=== PATIENT | female | born 1945 | race Caucasian/White ===

== ENCOUNTER → 2017-02-23 | Outpatient (CLI) | payer OTHER | END | disposition home or self-care (01) | LOC: C.RDSM 15:15 | PROVIDERS: ATTEND Physical Medicine & Rehabilitation Sports Medicine | DX: M25.562 Pain in left knee (principal) ==

== ENCOUNTER 2017-07-01 05:02 | Inpatient (IN) | payer OTHER ==
[2017-06-08 11:11] VITALS: Ht 157.5 cm; Wt 70.4 kg
--- NOTE | 2017-06-08 11:42 | PAT Medication Instructions ---
Service Date Jun 08, 2017. Current Home Medication List Acetaminophen (Tylenol), 500 MG PO PRN Aspirin (Aspirin), 325 MG PO QPM Carbidopa/Levodopa (Sinemet 25MG/100MG), 1 TAB PO Q12H Cetirizine (Zyrtec), 10 MG PO PRN Folic Acid (Folvite), 1 MG PO QPM Hydrochlorothiazide (Hctz), 25 MG PO QAM Rasagiline Mesylate (Azilect), 1 MG PO QAM Valsartan (Diovan), 160 MG PO QPM Medication Instructions For Your Scheduled Surgery -Contact your surgeon for instructions for: Aspirin (Aspirin), 325 MG PO QPM - The following medication MUST BE HELD FOR 2 WEEKS prior to surgery: Rasagiline Mesylate (Azilect), 1 MG PO QAM - Hold the following medications the night before surgery: Valsartan (Diovan), 160 MG PO QPM - Hold the following medications the morning of surgery: Cetirizine (Zyrtec), 10 MG PO PRN Hydrochlorothiazide (Hctz), 25 MG PO QAM - Take the following medications the morning of surgery with a sip of water: Acetaminophen (Tylenol), 500 MG PO PRN (if needed, can be taken up to four hours before surgery) Carbidopa/Levodopa (Sinemet 25MG/100MG), 1 TAB PO Q12H - Take the following medications as scheduled the night before surgery: Acetaminophen (Tylenol), 500 MG PO PRN (if needed) Carbidopa/Levodopa (Sinemet 25MG/100MG), 1 TAB PO Q12H Cetirizine (Zyrtec), 10 MG PO PRN (if needed) Folic Acid (Folvite), 1 MG PO QPM If you have any questions please call us at [phone] or [phone] or [phone]
--- NOTE | 2017-06-08 12:32 | DIAGNOSTIC IMAGING REPORT ---
CHEST 2 VIEWS ROUTINE CLINICAL HISTORY: 71 years-old Female presenting with preoperative assessment. TECHNIQUE: PA and lateral views of the chest were obtained. COMPARISON: None. FINDINGS: Atherosclerosis of the aortic arch. Cardiac silhouette normal in size. Lungs and pleural spaces clear. Degenerative changes of the thoracic spine. Cholecystectomy clips noted. IMPRESSION: 1. No acute cardiopulmonary disease. Electronically signed by: Cholo Sanchez M.D. 06/08/2017 12:31 PM Dictated Date/Time: 06/08/2017 12:30 PM
[2017-06-08 12:45] LABS: BASO % 0.2 %; BASO ABS # 0.01 K/uL (0-0.2); EOS % 3.2 %; HEMATOCRIT 38.5 % (37-47); HEMOGLOBIN 12.6 g/dL (12.0-16.0); IG# 0.01 K/uL (0.00-0.02); LYMPH % 26.8 %; LYMPH ABS # 1.68 K/uL (1.2-3.4); MEAN CELL VOLUME 84.1 fL (80-100); MEAN CORPUSCULAR HEMOGLOBIN 27.5 pg (25-34); MEAN CORPUSCULAR HGB CONC 32.7 g/dl (32-36); MEAN PLATELET VOLUME 9.3 fL (7.4-10.4); MONO % 7.8 %; MONO ABS # 0.49 K/uL (0.11-0.59); NEUT % 61.8 %; NEUT ABS # 3.88 K/uL (1.4-6.5); PLATELET COUNT 251 K/uL (130-400); RED CELL DISTRIBUTION WIDTH CV 15.4 % (11.5-14.5); RED CELL DISTRIBUTION WIDTH SD 47.3 fL (36.4-46.3); WHITE BLOOD COUNT 6.27 K/uL (4.8-10.8)
[2017-06-08 12:46] LABS: PTT PATIENT 27.3 SECONDS (21.0-31.0)
[2017-06-08 13:03] LABS: CALCIUM 9.1 mg/dl (8.5-10.1); CREATININE 0.8 mg/dl (0.60-1.20); POTASSIUM 4.3 mmol/L (3.5-5.1)
--- NOTE | 2017-06-24 11:53 | HISTORY & PHYSICAL EXAMINATION ---
DATE OF ADMISSION: 07/01/2017 CHIEF COMPLAINT: Left knee pain. HISTORY OF PRESENT ILLNESS: This 71-year-old white female presents to the office with complaints of left knee pain that has been present for over a year. The patient recently had an arthroscopic partial lateral meniscectomy and debridement and has noted increasing pain and immobility since then. No catching or locking. Pain is worse with weightbearing. It is affecting her ADLs. She admits to frequent night pain. No recent effusions. X-ray imaging has been obtained. She elects to proceed with total knee arthroplasty in hopes of alleviating her discomfort. She does have Parkinson disease which also limits her mobility. PAST MEDICAL HISTORY: Significant for hypertension, Parkinson disease, osteoarthritis, kidney stones, obesity, and history of diverticulitis. PREVIOUS SURGERIES: Right breast lumpectomy, hysterectomy, laparoscopic cholecystectomy on 02/06/2014, and cataract surgery. ALLERGIES: KNOWN ALLERGY TO DOXYCYCLINE, HYZAAR, AVELOX, AND PERCOCET AND CODEINE WHICH CAUSED HALLUCINATIONS. CURRENT MEDICATIONS: Aspirin 325 mg p.o. daily, Azilect daily, carbidopa/levodopa 25 mg/100 mg p.o. daily, Diovan daily, folic acid daily, HCTZ 25 mg p.o. daily, ibuprofen p.r.n., tramadol p.r.n., and vitamin C daily. SOCIAL HISTORY: The patient is . Retired. No tobacco use, no ETOH use. REVIEW OF SYSTEMS: Significant for above-stated conditions, otherwise unremarkable. PHYSICAL EXAMINATION: GENERAL: Well-developed, well-nourished elderly white female, somewhat flat affect, in no acute distress. Sitting in a chair. Alert and oriented. SKIN: Warm and dry with good turgor. No rashes or lesions. No ecchymosis or erythema. HEENT: Normocephalic, atraumatic. EYES: PERRLA, EOMI. NOSE: Nares patent bilaterally without turbinate enlargement. MOUTH: Oropharynx without erythema or exudate. No lesions noted. Uvula midline. Oral mucosa moist. Upper and lower dentures are noted. HEART: RRR. No MGR. LUNGS: Clear to auscultation bilaterally. No crackles, rhonchi or wheezing. Good air movement. ABDOMEN: Bowel sounds present x4, soft, nontender. No organomegaly. No masses. MUSCULOSKELETAL: Left knee has no obvious asymmetry or deformity. Varus positioning. Global pain with palpation about the knee. She has pain at the medial and lateral joint lines as well as the peripatellar area. Stable collateral ligaments. Pseudo valgus laxity. She lacks approximately 10 degrees of terminal extension. Flexion to only around 80 degrees. These are limited by pain. No defect in the patellar tendon or quadriceps tendon. NEUROLOGIC: Gross sensation is intact across both lower extremities by soft touch. Peripheral pulses are 2+. Cranial nerves II-XII are intact. IMAGING DATA: Radiographic imaging previously obtained shows significant medial joint space narrowing. MRI previously obtained show subchondral edema in the proximal medial tibia. Cartilage loss is also present on the distal femur. IMPRESSION: Left knee end-stage degenerative joint disease. PLAN: Postoperative prescriptions for Percocet and Coumadin will be provided at discharge from the hospital. Anticipate discharge to home with 2 weeks of home health services and then outpatient PT. Preoperative lab work, EKG, and chest x-ray have been ordered. Prescription for a rolling walker was provided. She will obtain medical clearance from her PCP. She will stop her aspirin at least 5 days prior to surgery. TJ
[~2017-07-01] VITALS: Ht 157.5 cm; Wt 70.4 kg
[2017-07-01] VITALS (9 sets, daily range): BP systolic 127–156; BP diastolic 74–83; PULSE 55–75; TEMP 36.5–37; O2SAT 94–99
[~2017-07-01 05:02] MED LIST: ACET-1256 PO; ASPI325T45 PO; CARB25TA12 PO; CETI10TA84 PO; DVN/160 PO; FOLI1TAB8 PO; HYDR25TA4 PO; RASA1TAB PO
[2017-07-01] MEDS ORDERED: METO50TA16 PO (05:43)
[2017-07-01] MEDS ORDERED: CEFAZOLIN 2000MG IV PUSH 15 ML IV SCH (06:00)
[2017-07-01] MEDS ORDERED: TRANEXAMIC ACID INJ 1,000 MG x 1 Bag Preop IV SCH ×2 (06:00)
[2017-07-01] MEDS ORDERED: ROPIVACAINE 5MG/ML 30 ML 150 MG, BUPIVACAINE/EPINEPHR 0.5% MPF 30 ML, KETOROLAC TROMETH... INFIL SCH ×7 (06:00)
[2017-07-01] MEDS ORDERED: LACTATED RINGER'S 1000ML 1,000 ML IV SCH ×2 (06:00)
[2017-07-01] MEDS ORDERED: LACTATED RINGER'S 1000ML 500 ML IV SCH (06:00)
[2017-07-01] MEDS ORDERED: BUPIVACAINE 0.5 % 5 MG/1 ML PF 10ML VIAL ONE (06:21)
[2017-07-01] MEDS ORDERED: ROPIVACAINE 0.5% 5 MG/ML 30 ML VIAL ONE (06:21)
[2017-07-01] MEDS ORDERED: LIDOCAINE HCL 2% 2 ML VIAL (20MG/ML) ONE (06:25)
[2017-07-01] MEDS ORDERED: PROPOFOL IV EMULSION 10 MG/ML 20 ML VIAL IV ONE (06:25)
[2017-07-01] MEDS ORDERED: MIDAZOLAM HCL 1 MG/ML 2ML VIAL ONE (06:26)
[2017-07-01] MEDS ORDERED: FENTANYL CITRATE INJ 50 MCG/1 ML 2 ML VIAL ONE (06:26)
--- NOTE | 2017-07-01 06:28 | History & Physical Bridge Note ---
H&P Re-Evaluation Bridge Note: I have examined the patient, reviewed the History & Physical and in the interval since the performance of the History & Physical I have noted the following changes of clinical significance: consent obtained.No changes noted
[2017-07-01] MEDS ORDERED: POVIDONE-IODINE OP SOLN 30 ML BTL ONE (06:35)
[2017-07-01] MEDS ORDERED: ORTHO JOINT ANESTHETIC ONE (06:35)
[2017-07-01] MEDS ORDERED: SCOPOLAMINE 1.5 MG TDSY TD ONE (06:42)
[2017-07-01] MEDS ORDERED: ONDANSETRON INJ 2 MG/ML 2 ML VIAL IV PRN ×2 (07:30→08:45)
[2017-07-01] MEDS ORDERED: ATROPINE SULFATE 0.1 MG/ML 5ML SYR IV PRN (07:30)
[2017-07-01] MEDS ORDERED: FENTANYL CITRATE INJ 50 MCG/1 ML 2 ML VIAL IV PRN (07:30)
[2017-07-01] MEDS ORDERED: EpHEDrine SULFATE INJ 50 MG/ML AMP IV PRN (07:30)
--- NOTE | 2017-07-01 08:28 | [facility] Post Operative Brief Note ---
Immediate Operative Summary Operative Date Jul 01, 2017. Pre-Operative Diagnosis Left Knee End-Stage Degenerative Joint Disease Post-Operative Diagnosis Left Knee End-Stage Degenerative Joint Disease Procedure(s) Performed Left Total Knee Arthroplasty Surgeon Dr. Gtz Floorworker Lasting Surgeon(s) Dr. Pb Trevino (Fellow)/ CRISPIN Novak Estimated Blood Loss 25 ml Findings Consistent with Post-Op Diagnosis Fluids (cc crystalloids) 1100cc Specimens A. Left Knee Bone and Tissue Drains None Anesthesia Type MAC Spinal Regional Complication(s) none Disposition Accompanied Pt To Recover: no Disposition: Recovery Room / PACU
[2017-07-01] MEDS ORDERED: MoRPHine SULFATE 2 MG/ML CARP IV PRN (08:45)
[2017-07-01] MEDS ORDERED: CETIRIZINE HCL 10 MG TAB PO PRN (08:45)
[2017-07-01] MEDS ORDERED: MAGNESIUM HYDROXIDE SUSP 30 ML UDC PO PRN (08:45)
[2017-07-01] MEDS ORDERED: BISACODYL 10 MG SUPP PR PRN (08:45)
[2017-07-01] MEDS ORDERED: OXYCODONE HCL IR 5 MG TAB (IMMEDIATE RELEASE) PO PRN (08:45)
[2017-07-01] MEDS ORDERED: CEFAZOLIN IV 2,000 MG in DEXTROSE 5% 50ML 50 ML IV SCH (08:45)
[2017-07-01] MEDS ORDERED: DiphenhydrAMINE HCL 50 MG/ML VIAL IV PRN (08:45)
[2017-07-01] MEDS ORDERED: METOCLOPRAMIDE HCL INJ 5 MG/ML 2 ML VIAL IV PRN (08:45)
[2017-07-01] MEDS ORDERED: ALUMINUM/MAGNESIUM/SIMETH (MAALOX MAX) 30 ML UDC PO PRN (08:45)
[2017-07-01] MEDS ORDERED: ACETAMINOPHEN IV 100 ML IV PRN (08:45)
--- NOTE | 2017-07-01 08:47 | OPERATIVE REPORT ---
DATE OF OPERATION: 07/01/2017 SURGEON: Antwon Gtz MD. DECISION SUPPORT ANALYST: Belinda. SECOND DECISION SUPPORT ANALYST: Herbert Lopez PA-C. PREOPERATIVE DIAGNOSIS: Osteoarthritis, left knee. POSTOPERATIVE DIAGNOSIS: Same. OPERATION PERFORMED: Cemented left total knee replacement. PERIOPERATIVE SITUATION: Medically cleared female with intractable knee pain with physical exam, x-ray revealing substantial medial compartment disease. She has failed conservative management and is requesting knee replacement. She understands all the risks and benefits. DESCRIPTION OF THE PROCEDURE: The patient appropriately identified, site verified, consent verified, 2 grams of Ancef confirmed as being given. The left lower extremity was prepped and draped in usual routine fashion. Tourniquet inflated to 275 mmHg after exsanguination of limb with a rubber Esmarch bandage for a total of approximately 55 minutes. Midline exposure utilized. Parapatellar arthrotomy performed. Synovectomy completed, osteophytes resected. Distal femur entered. The distal femur was then resected 12 mm. The tibia was then subluxated, menisci resected after the cruciates were resacrificed and the proximal tibia resected 4 mm, the extension gap was excellent. The femur was then sized to a size 2 and appropriate cuts made and the flexion gap was excellent. The box cut was then made and the size 2 trial fit well. The tibia was then broached and reamed to a size 2. Appropriate spacer placed, 10 mm. There was good range of motion and good mid range flexion, stability and full flexion stability. The patella was sized to a 35. It was resected, required an additional resector to get the sclerotic bone removed and then the trial fit well after seating holes were made. The patella tracked well. All implants removed. The wound was then irrigated with Betadine Pulsavac and the permanent cemented into position. After 12 minutes, the tourniquet deflated. After 14 minutes, the knee flexed. Minor cement removal occurred. During the procedure, the plastic block on the impactor became disengaged, everything was looked for, all pieces were accounted for and there were no issues. The wound was irrigated one final time after the trial spacer was removed. The knee inspected. No additional findings of any loose cement or loose plastic, everything was clean. The knee was irrigated with Betadine and then the permanent liner seated. The knee reduced. The knee was then flexed and extended, it tracked well without any closure of the extensor mechanism. The extensor mechanism was then closed with #2 Vicryl, subcutaneous layer with 2-0 Vicryl and the skin with stainless steel clips. Appropriate dressing applied and the patient transferred to recovery room in satisfactory condition having tolerated the procedure well. ESTIMATED BLOOD LOSS: 25 mL or less. CRYSTALLOID: 1100 mL. Deep venous thrombosis prophylaxis per protocol. implants size 2 femur and tibia/10mm spacer PCL substituting/oval dome 3 peg [id number]/2 bags palacos G cement. I attest to the content of the Intraoperative Record and any orders documented therein. Any exceptions are noted below. MTDD
--- NOTE | 2017-07-01 09:10 | DIAGNOSTIC IMAGING REPORT ---
L KNEE 2 VIEWS ROUTINE CLINICAL HISTORY: Degenerative arthritis. Postoperative study COMPARISON: 02/23/2017 DISCUSSION: There are postsurgical changes of a total left knee arthroplasty and patellar resurfacing. The femoral tibial components appear well seated. There are overlying skin den. There is air within the soft tissues consistent with recent surgery. IMPRESSION: Postsurgical changes of a total left knee arthroplasty. Electronically signed by: Bill Wright M.D. 07/01/2017 9:09 AM Dictated Date/Time: 07/01/2017 9:08 AM
--- NOTE | 2017-07-01 09:21 | Anesthesiology Progress Note ---
Anesthesia Post Op Note Date & Time Jul 01, 2017 at 09:19 Vital Signs Pain Intensity: 0 Vital Signs Past 12 Hours Date Time Temp Pulse Resp B/P (MAP) Pulse Ox O2 Delivery O2 Flow Rate FiO2 07/01/17 09:10 36.8 73 18 130/68 96 Nasal Cannula 2 07/01/17 09:00 78 20 125/69 96 Nasal Cannula 2 07/01/17 08:50 77 17 131/72 95 Nasal Cannula 2 07/01/17 08:40 79 15 121/65 96 Nasal Cannula 2 07/01/17 08:33 36.5 84 18 113/63 99 Oxymask 10 07/01/17 06:27 96 Room Air 07/01/17 06:21 36.5 71 20 156/80 Notes Mental Status: alert / awake / arousable, participated in evaluation Pt Amnestic to Procedure: Yes Nausea / Vomiting: adequately controlled Pain: adequately controlled Airway Patency, RR, SpO2: stable & adequate BP & HR: stable & adequate Hydration State: stable & adequate Neuraxial Anesthesia: was administered, sensory block is resolving Anesthetic Complications: no major complications apparent In PACU, it was noted that the patient had a minor depression in the ST segment on her bedside monitor. The pt was asymptomatic denying CP or SOB. Vital signs were stable. I ordered a 12 lead EKG, which showed a nonspecific ST and T wave pattern. There was minimal change from her pre-operative EKG. Again, the patient remained asymptomatic and her vital signs were stable. The pt was stable for discharge to her room.
[2017-07-01] MEDS ORDERED: MoRPHine SULFATE 4 MG/ML 1 ML CARP\\VIAL IV PRN (09:45)
[2017-07-01] MEDS: DOCUSATE SODIUM 100 MG CAP PO SCH ×2 (10:38→20:50)
[2017-07-01] MEDS: METOPROLOL TARTRATE 50 MG TAB PO SCH ×2 (10:39→20:50)
[2017-07-01] MEDS: HYDROCHLOROTHIAZIDE 25 MG TAB PO SCH (10:39)
[2017-07-01] MEDS: PANTOprazole SOD 40 MG TAB PO SCH (10:39)
[2017-07-01] MEDS: KETOROLAC TROMETHAMINE 15 MG/ML VIAL IV. SCH ×3 (10:40→22:00)
[2017-07-01] MEDS: D5W AND 1/2NSS + 20MEQ KCL 1,000 ML IV SCH ×2 (10:40→22:25)
[2017-07-01] MEDS: MULTIVITAMIN TAB PO SCH (10:40)
--- NOTE | 2017-07-01 11:29 | PROGRESS NOTE ---
DATE: 07/01/2017 SUBJECTIVE: Postop check status post left total knee replacement. The patient is sitting up in bed comfortable. Still has some effects in place of her spinal. Notes no pain. She denies any nausea, vomiting, chest pain, shortness of breath, fever or chills. OBJECTIVE: Vital signs are stable. Wound is clean and dry. Neurovascular check is consistent with bilateral leg numbness and weakness from her spinal, has no pain. Postop x-rays look excellent. ASSESSMENT: Overall, doing well. Continue with care pathway. Mobilize as soon as spinal wears off.
[2017-07-01] MEDS: FERROUS GLUCONATE 324 MG TAB PO SCH ×2 (12:01→17:41)
--- NOTE | 2017-07-01 13:31 | [facility] Operative Report ---
Operative Report Operative Date Jul 01, 2017. Pre-Operative Diagnosis Left Knee End-Stage Degenerative Joint Disease Post-Operative Diagnosis Left Knee End-Stage Degenerative Joint Disease Procedure(s) Performed Left Total Knee Arthroplasty Surgeon Dr. Gtz Curing Room Worker Surgeon(s) Dr. Pb Trevino (Fellow)/ CRISPIN Novak Estimated Blood Loss 25 ml Findings Left knee DJD Fluids 1100cc Specimens A. Left Knee Bone and Tissue Drains None Anesthesia Type MAC Spinal Regional Complication(s) none Disposition no Recovery Room / PACU Indications This 71-year-old white female presented to the office with complaints of intractable left knee pain. She had tried previous knee arthroscopy and debridement without lasting improvement. She has also tried injection therapy as well as activity modification without lasting improvement. She elects to proceed with additional surgical intervention in hopes of alleviating her pain. Preoperative imaging has been obtained. Description of Procedure Patient was administered a spinal anesthetic and then taken to the operating room where she was given sedation. She was prepped and draped in usual sterile fashion. Please see Dr. Gtz's operative report for specifics of the procedure. I was present for the entire case from initial patient positioning through final wound closure. Assistance was provided in tissue retraction, hemostasis, trial implant placement, final implant placement, and final wound closure. Patient was taken to the recovery room in satisfactory condition. I attest to the content of the Intraoperative Record and any orders documented therein. Any exceptions are noted below.
[2017-07-01] MEDS ORDERED: WARF2TAB PO (13:36)
[2017-07-01] MEDS: CEFAZOLIN IV 2,000 MG in SYRINGE 0 ML IV SCH ×2 (14:27→22:00)
[2017-07-01] MEDS ORDERED: TRANEXAMIC ACID INJ 1,000 MG in SODIUM CHLORIDE 0.9% 100ML 100 ML IV ONE (15:30)
[2017-07-01] MEDS ORDERED: WARFARIN SOD 5 MG TAB PO SCH (16:00)
[2017-07-01] MEDS ORDERED: NURSING VERBAL MED ORDER ONE ×2 (16:30→17:00)
[2017-07-01] MEDS: TRAMADOL HCL 50 MG TAB PO PRN ×2 (18:50→19:22)
[2017-07-01] MEDS: CARBIDOPA/LEVODOPA 25/100MG TAB PO SCH (20:50)
[2017-07-01] MEDS: VALSARTAN 80 MG TAB PO SCH (20:50)
[2017-07-02] VITALS (7 sets, daily range): BP systolic 124–145; BP diastolic 70–80; PULSE 56–63; TEMP 36.6–36.9; O2SAT 91–95
[2017-07-02] MEDS ORDERED: NURSING VERBAL MED ORDER ONE
[2017-07-02] MEDS: KETOROLAC TROMETHAMINE 15 MG/ML VIAL IV. SCH (03:04)
--- NOTE | 2017-07-02 06:49 | PROGRESS NOTE ---
DATE: 07/02/2017 Postop day #1 status post left total knee replacement. The patient is doing well. Denies any chest pain, shortness of breath, fever, chills, nausea, vomiting or headache. She has been mobile. Vital signs are stable. She is afebrile. Neurovascular check, femoral sciatic nerve is normal. Can do straight leg raise. Dressing clean, dry and intact. A.m. labs are pending. ASSESSMENT: Doing well. Discharge today. Coumadin per results. If nomogram is less than 1.5, discharge on 4 mg; if greater than 1.5, discharge on 2 mg. Check INR on Thursday.
--- NOTE | 2017-07-02 06:52 | DISCHARGE SUMMARY ---
CHIEF COMPLAINT: Left knee pain. HISTORY OF PRESENT ILLNESS: A 71-year-old female admitted for elective left total knee replacement. Hospital course has been uneventful. PAST MEDICAL HISTORY: Remarkable for hypertension, Parkinson's disease, osteoarthritis, kidney stones, obesity and diverticulitis. PAST SURGICAL HISTORY: Include breast lumpectomy, hysterectomy, laparoscopic cholecystectomy and cataract surgery. ALLERGIES: INCLUDE DOXYCYCLINE, HYZAAR, AVELOX, PERCOCET AND CODEINE WHICH CAUSE HALLUCINATIONS. PREADMISSION MEDICATIONS: Include aspirin, Azilect, carbidopa/levodopa, Diovan, folic acid, hydrochlorothiazide, p.r.n., ibuprofen, p.r.n. tramadol and vitamin C. She will discontinue the aspirin and be on Coumadin, keep INR 1.8-2.2. If INR is less than 1.5, discharge on 4 mg. If greater than 1.5, discharge on 2 mg. SOCIAL HISTORY: She is , retired. No tobacco or alcohol use. REVIEW OF SYSTEMS: Noncontributory. ASSESSMENT: Status post left total knee replacement, doing well, will discharge today. Follow up in 2 weeks for staple removal.
[2017-07-02] MEDS ORDERED: DEXAMETHASONE INJ 10 MG in SYRINGE 0 ML IV SCH (07:30)
[2017-07-02 07:46] LABS: HEMATOCRIT 34.4 % (37-47); HEMOGLOBIN 11.7 g/dL (12.0-16.0); MEAN CELL VOLUME 83.1 fL (80-100); MEAN CORPUSCULAR HEMOGLOBIN 28.3 pg (25-34); MEAN PLATELET VOLUME 9.6 fL (7.4-10.4); PLATELET COUNT 218 K/uL (130-400); RED CELL DISTRIBUTION WIDTH CV 14.9 % (11.5-14.5); RED CELL DISTRIBUTION WIDTH SD 45.5 fL (36.4-46.3); WHITE BLOOD COUNT 11.27 K/uL (4.8-10.8)
[2017-07-02 07:53] LABS: INR 1.1 (0.9-1.1)
[2017-07-02 08:17] LABS: CALCIUM 8.6 mg/dl (8.5-10.1); CREATININE 1.04 mg/dl (0.60-1.20)
[2017-07-02] MEDS: DOCUSATE SODIUM 100 MG CAP PO SCH ×2 (08:24→21:31)
[2017-07-02] MEDS: PANTOprazole SOD 40 MG TAB PO SCH (08:25)
[2017-07-02] MEDS: FERROUS GLUCONATE 324 MG TAB PO SCH ×3 (08:25→17:37)
[2017-07-02] MEDS: HYDROCHLOROTHIAZIDE 25 MG TAB PO SCH (08:26)
[2017-07-02] MEDS: MULTIVITAMIN TAB PO SCH (08:26)
[2017-07-02] MEDS: METOPROLOL TARTRATE 50 MG TAB PO SCH ×2 (08:27→21:00)
[2017-07-02] MEDS: CARBIDOPA/LEVODOPA 25/100MG TAB PO SCH ×2 (08:27→21:30)
--- NOTE | 2017-07-02 10:33 | Discharge Instructions ---
Discharge Instructions Date of Service Jul 01, 2017. Admission Reason for Admission: Left Knee Degenerative Joint Disease Discharge Discharge Diagnosis / Problem: left knee s/p total knee replacement Discharge Goals Goal(s): Decrease discomfort, Improve function, Increase independence Activity Recommendations Activity Limitations: as noted below Lifting Limitations: gradually increase as tolerated Exercise/Sports Limitations: until after follow-up appointment Shower/Bathe: keep incision dry Driving or Machine Use: No driving until cleared by Dr. Gtz Weightbearing Status: Left weightbearing (as tolerated) . Instructions / Follow-Up Instructions / Follow-Up New Medicine: * You will likely be taking one or more of these medications: 1. Tylenol - Take, as directed, when you need it, every four to six hours to control your pain. 2. Iron Sulfate - Take three times each day for the month after surgery to help you replace the blood lost during surgery. 3. Coumadin - Thins your blood to lessen the chance of forming a blood clot. The dose of this is different for each person and is based on your blood tests that are done twice a week. * The most common side effects of pain medicine and iron are nausea and constipation. If nausea or constipation is too much of a problem or if you have any questions about your new medicines or doses, call [facility] at . We will try to help you manage these issues. VERY IMPORTANT TO READ AND REVIEW" Blood Clots and Blood Thinning Medicine: * You are given Coumadin during the immediate post-operative period to lessen the risk of blood clots forming in your legs and/or lungs. Coumadin is usually given for six weeks after surgery. * The prescription is for 2 mg tablets. At discharge, you should understand your dose and take it all at the same time every day, preferably after dinner. * You need to get your blood checked 1 - 2 times per week for six weeks or as directed. * If your dose needs to change, we will call you. Do not take your medication on the day of the blood test until we call you. Pain: * The immediate post-operative period after knee replacement surgery is often quite painful. * You are given a prescription for pain medicine. You should take it, as directed, when you need it, especially before physical therapy and before going to bed. Pain that interferes with sleep is very common and can last several months. * You will likely need pain medicine for the first four to six weeks. It will not stop all of the pain. The pain will lessen and as you feel better, you may change to milder pain medicine such as Tylenol. * The most common side effects of pain medicine are nausea and constipation, so don't take more than you need. Physical Therapy: * You will have physical therapy two or three times each week for four to six weeks after your surgery in order to regain your knee range of motion and to retrain your knee to work properly. * It is just as important to make sure you are getting your knee perfectly straight as it is to regain your knee bend. * Taking a pain pill an hour before therapy can help you have a more productive and comfortable therapy session if needed. Home Exercise: * You were shown a series of exercises (heel props, heel slides, etc.) in the hospital. Do these exercises three to four times each day including the exercises you were shown in physical therapy. Walking: * Get up and walk several times each day. For the first four weeks, try not to stand or walk for more than one hour at a time. If you do stand or walk for more than one hour, you will not hurt anything, but your knee and leg will likely swell. * As you feel comfortable, you may change from the walker or crutches to a cane and then to independent walking. SELF CARE INSTRUCTIONS AFTER TOTAL KNEE REPLACEMENT A. You may need to continue a physical therapy program after discharge from the hospital. There are several options available to you. Your doctor will assist you in selecting the best one for you. 1. An out-patient facility 2 to 3 times a week for therapy or home therapy. 2. Continue working on all exercises taught to you in the hospital. Your goals should be to increase bending of your knee to 90 degrees and beyond and to fully straighten your knee. B. You may progress at your own pace from walking with a walker or crutches to a cane; then to no assistive devices. C. Make walking a part of your daily routine. Be up as much as comfortable with rest periods throughout the day. Rest with leg elevation is very important. Use the ice wrap frequently for the first 3-4 weeks. D. There are no restrictions on activities. You may ride in a car, shop, participate in syrup shed supervisor and all social activities. E. Wear the long elastic stockings (KENDAL hose) 20 hours a day for six weeks after surgery. They can be removed several times a day for laundering and for a shower. F. Do not place a pillow behind your knee when resting. A pillow at your ankle is okay. VERY IMPORTANT TO READ AND REVIEW A. Take Coumadin, Aspirin or Lovenox (blood thinning medications) as directed by your doctor. If on Coumadin, have a pro-time (blood test) drawn according to your doctor's instructions. This will tell the doctor how well the Coumadin is thinning your blood. 1. YOU WILL BE GIVEN AN ORDER AT DISCHARGE FOR PT/INR (BLOOD WORK). PLEASE HAVE THIS DONE INSTRUCTED. PLEASE CALL OUR OFFICE AFTER YOUR BLOODWORK IS COMPLETE SO WE CAN TRACK YOUR RESULTS. IF YOU ARE GOING TO OUTPATIENT PHYSICAL THERAPY, YOU WILL NEED TO GO TO OUTPATIENT TESTING TO HAVE IT DRAWN. B. There are a few signs you need to watch for after you are home. Call [facility] if you notice any of the followin. Increased severe knee pain. Some pain is expected especially when you exercise. 2. Increased swelling in your leg or knee; pain or swelling of the calf muscle in either lower leg. 3. Any fluid drainage from the incision. 4. Shortness of breath or chest pain. C. Please call [facility] at if you have any concerns or questions about your operation or recovery. The doctor or his nurse will return your call promptly. D. You must take antibiotics before dental work, bladder, bowel or other surgery. Call the office to obtain a prescription at least 2 days prior to your appointment. * CALL IF INCREASED PAIN, REDNESS, DRAINAGE OR FEVER GREATER THAT 101. * Sutures should be removed 12-14 days after surgery unless you are on chronic steriods, then it will be 14-18 days after surgery. Call your doctor if: * Temperature above 101 degrees F. * Pain not relieved by pain medicine ordered. * Increased drainage or redness from incision. * Notify your doctor with any questions or concerns. Current Hospital Diet Patient's current hospital diet: Regular Diet Discharge Diet Recommended Diet: Regular Diet Procedures Procedures Performed: Left Total Knee Arthroplasty Pending Studies Studies pending at discharge: no Medical Emergencies . Who to Call and When: Medical Emergencies: If at any time you feel your situation is an emergency, please call 911 immediately. . Non-Emergent Contact Non-Emergency issues call your: Primary Care Provider, Surgeon Call Non-Emergent contact if: temperature is above 101, wound has increased drainage, wound has increased redness, wound has increased pain, you have any medication questions . "Provider Documentation" section prepared by Herbert Lopez PA-C. . [place] Drug Monitoring Program Search Results: no issues identified
--- NOTE | 2017-07-02 10:40 | Orthopedic Progress Note ---
Orthopedic Progress Note Date of Service Jul 02, 2017. Subjective Post OP Day: 1 Reports: pain controlled w PO medications, Denies: complaints, chest pain, SOB, nausea / vomiting, light headedness, calf pain Additional Notes: Has used minimal pain medication. Had a tablet of tramadol last evening at 7. Not using any narcotics. Denies any significant pain. Objective calves soft nontender, N/V intact, capillary refill less than 2 sec., dressing C /D/I, incision C/D/I, A&O x3, toes mobile, CMS intact Scant drainage on dressings, no active bleeding. Patient is pleasantly confused during exam. Thinks she is in [facility]. states she thought he was talking to her mother, who has been since 1986. Date Time Temp Pulse Resp B/P (MAP) Pulse Ox O2 Delivery O2 Flow Rate FiO2 07/02/17 07:47 91 Room Air 07/02/17 06:58 36.6 63 17 127/77 (94) 91 Room Air 07/02/17 04:04 36.9 57 16 124/78 (93) 91 Room Air 07/01/17 23:15 Room Air 07/01/17 23:00 37.0 55 15 127/81 (96) 94 Room Air 07/01/17 16:10 Room Air 07/01/17 15:21 36.7 56 18 138/81 (100) 94 Room Air 07/01/17 13:51 36.8 64 18 145/82 (103) 99 Nasal Cannula 2.0 07/01/17 11:40 64 16 144/83 (103) 99 Nasal Cannula 2.0 07/01/17 10:40 36.5 75 19 135/79 (97) 99 2.0 Laboratory Results 24 Hours: Test 07/02/17 07:00 Hematocrit 34.4 % Hemoglobin 11.7 g/dL Prothromb Time International Ratio 1.1 Prothrombin Time 11.6 SECONDS Assessment & Plan Assessment: Left knee s/p total knee arthroplasty Plan: PT/OT today Dressing changed today, wound looks good. will continue to monitor today to see if confusion improves coumadin today per nomogram. Discharge Planning Discharge Planning: home with home health Pain Management: Ultram, PO Tylenol DVT Prophylaxis: TEDs, SCDs, Coumadin
[2017-07-02] MEDS: ACETAMINOPHEN 325 MG TAB PO PRN ×2 (13:27→21:31)
--- NOTE | 2017-07-02 13:39 | Medical Consult ---
Consultation Date of Consultation: Jul 02, 2017. Attending Physician: Antwon Gtz M.D. Reason for Consultation: altered mental status History of Present Illness Mrs. Macy Gordon is a pleasant 71-year-old woman who recently had a left total knee arthroplasty due to significant knee pain affecting ambulation. Patient tolerated procedure well and has been progressing as expected. Vitals and labs are unremarkable. Medicine service was consulted for concern of altered mental status as per . In the past patient had prolonged sedation when she had general anesthesia. For her recent knee replacement, patient only had spinal anesthesia and last dose of Toradol was at 19:00 last night. Past Medical/Surgical History Parkinson's disease, hypertension, history of nephrolithiasis, osteoarthritis Social History Smoking Status: Never Smoker Allergies Coded Allergies: Codeine (Verified Allergy, Unknown, HALLUCINATIONS, 07/01/17) Doxycycline (Verified Allergy, Unknown, SEVERE VOMITING, 07/01/17) Losartan (Verified Allergy, Unknown, INCREASED BP, 07/01/17) Moxifloxacin (Verified Allergy, Unknown, HEART PALPITATIONS, 07/01/17) Oxycodone (Verified Allergy, Unknown, HALLUCINATIONS, 07/01/17) Pineapple (Verified Allergy, Unknown, BUMPS ON TONGUE, 07/01/17) Current Inpatient Medications Current Inpatient Medications Medications (Trade) Dose Ordered Sig/Mendoza Route Start Time Stop Time Status Last Admin Dose Admin Morphine Sulfate (MoRPHine SULFATE INJ) 2 mg Q1H PRN IV 07/01/17 08:45 07/15/17 08:44 Acetaminophen (Tylenol Tab) 650 mg Q6H PRN PO 07/01/17 08:45 07/31/17 08:44 07/02/17 13:27 650 MG Magnesium Hydroxide (Milk Of Magnesia Susp) 30 ml Q6H PRN PO 07/01/17 08:45 07/31/17 08:44 Bisacodyl (Dulcolax Supp) 10 mg DAILY PRN [place] 07/01/17 08:45 07/31/17 08:44 Docusate Sodium (coLACE CAP) 100 mg BID PO 07/01/17 09:00 07/31/17 08:59 07/02/17 08:24 100 MG Diphenhydramine HCl (Benadryl Inj) 25 mg Q8H PRN IV 07/01/17 08:45 07/31/17 08:44 Al Hydrox/Mg Hydrox/Simethicone (Maalox Max Susp) 15 ml Q4H PRN PO 07/01/17 08:45 07/31/17 08:44 Multivitamins (Multivitamin Tab) 1 tab QAM PO 07/01/17 09:00 07/31/17 08:59 07/02/17 08:26 1 TAB Ondansetron HCl (Zofran Inj) 4 mg Q6H PRN IV 07/01/17 08:45 07/31/17 08:44 Metoclopramide HCl (Reglan Inj) 10 mg Q6H PRN IV 07/01/17 08:45 07/31/17 08:44 Ferrous Gluconate (Ferrous Gluconate Tab) 324 mg TIDM PO 07/01/17 12:30 07/31/17 12:29 07/02/17 13:27 324 MG Pantoprazole Sodium (Protonix Tab) 40 mg QAM PO 07/01/17 09:00 07/06/17 08:59 07/02/17 08:25 40 MG Carbidopa/Levodopa (Sinemet 25/ 100MG Tab) 1 tab Q12 PO 07/01/17 21:00 07/31/17 20:59 07/02/17 08:27 1 TAB Cetirizine HCl (zyrTEC TAB) 10 mg DAILY PRN PO 07/01/17 08:45 07/31/17 08:44 Folic Acid (Folvite Tab) 1 mg QPM PO 07/01/17 21:00 07/31/17 20:59 07/01/17 20:50 1 MG Hydrochlorothiazide (Hydrochlorothiazide Tab) 25 mg QAM PO 07/01/17 09:00 07/31/17 08:59 07/02/17 08:26 25 MG Metoprolol Tartrate (Lopressor Tab) 50 mg BID PO 07/01/17 09:00 07/31/17 08:59 07/02/17 08:27 50 MG Valsartan (Diovan Tab) 160 mg QPM PO 07/01/17 21:00 07/31/17 20:59 07/01/17 20:50 160 MG Miscellaneous Information (Order Awaiting Action) 1 ea QS N/A 07/01/17 16:00 07/31/17 15:59 Morphine Sulfate (MoRPHine SULFATE INJ) 4 mg Q1H PRN IV 07/01/17 09:45 07/15/17 09:44 Review of Systems Constitutional: No fever, No chills, No sweats, No weight loss, No weakness, No fatigue, No problem reported Eyes: No worsening of vision, No eye pain, No redness, No discharge, No diplopia, No problem reported ENT: No hearing loss, No unusual epistaxis, No nasal symptoms, No sore throat, No tinnitus, No dental problems, No trouble swallowing, No problem reported Respiratory: No cough, No sputum, No wheezing, No shortness of breath, No dyspnea on exertion, No dyspnea at rest, No hemoptysis, No problem reported Cardiovascular: No chest pain, No orthopnea, No PND, No edema, No claudication , No palpitations, No problem reported Abdomen: No pain, No nausea, No vomiting, No diarrhea, No constipation, No GI bleeding, No problem reported Musculoskeletal: + joint pain (recent surgery; pain controlled), No muscle pain , No swelling, No calf pain, No problem reported Genitourinary - Female: No dysuria, No urinary frequency, No urinary urgency, No urinary incontinence, No urinary retention, No hematuria, No dysmenorrhea, No menorrhagia, No metrorrhagia, No rash, No vaginal bleeding, No vaginal discharge, No vaginal itching, No vulvodynia, No , No problem reported Neurologic: No memory loss, No paralysis, No weakness, No numbness/tingling, No vertigo, No balance problems, No problem reported Psychiatric: No depression symptoms, No anhedonism, No anxiety, No insomnia, No substance abuse, No problem reported Endocrine: No fatigue, No excessive thirst, No excessive urination, No problem reported Hematologic / Lymphatic: No abnormal bleeding/bruising, No clotting problems, No swollen lymph nodes, No night sweats, No problem reported Integumentary: No rash, No itch, No new/changing skin lesions, No color change , No bleeding, No problem reported Physical Exam Date Time Temp Pulse Resp B/P (MAP) Pulse Ox O2 Delivery O2 Flow Rate FiO2 07/02/17 11:02 36.6 61 19 126/80 (95) 91 Room Air 07/02/17 07:47 91 Room Air 07/02/17 06:58 36.6 63 17 127/77 (94) 91 Room Air 07/02/17 04:04 36.9 57 16 124/78 (93) 91 Room Air 07/01/17 23:15 Room Air 07/01/17 23:00 37.0 55 15 127/81 (96) 94 Room Air 07/01/17 16:10 Room Air 07/01/17 15:21 36.7 56 18 138/81 (100) 94 Room Air 07/01/17 13:51 36.8 64 18 145/82 (103) 99 Nasal Cannula 2.0 General Appearance: WD/WN, no apparent distress Head: normocephalic, atraumatic Eyes: normal inspection ENT: normal ENT inspection Neck: supple, no adenopathy Respiratory/Chest: chest non-tender, lungs clear, normal breath sounds, no respiratory distress, no accessory muscle use Cardiovascular: regular rate, rhythm, no edema, no gallop, no JVD, no murmur, normal peripheral pulses Abdomen/GI: normal bowel sounds, non tender, soft, no organomegaly Back: normal inspection, no CVA tenderness Extremities/Musculoskelatal: normal inspection, no calf tenderness Neurologic/Psych: picker and packer II-XII nml as tested, no motor/sensory deficits, alert, oriented x 3 Laboratory Results Last 24 Hours Test 07/02/17 07:00 White Blood Count 11.27 K/uL Red Blood Count 4.14 M/uL Hemoglobin 11.7 g/dL Hematocrit 34.4 % Mean Corpuscular Volume 83.1 fL Mean Corpuscular Hemoglobin 28.3 pg Mean Corpuscular Hemoglobin Concent 34.0 g/dl RDW Standard Deviation 45.5 fL RDW Coefficient of Variation 14.9 % Platelet Count 218 K/uL Mean Platelet Volume 9.6 fL Prothrombin Time 11.6 SECONDS Prothromb Time International Ratio 1.1 Sodium Level 139 mmol/L Potassium Level 4.0 mmol/L Chloride Level 104 mmol/L Carbon Dioxide Level 28 mmol/L Anion Gap 6.0 mmol/L Blood Urea Nitrogen 19 mg/dl Creatinine 1.04 mg/dl Est Creatinine Clear Calc Drug Dose 44.9 ml/min Estimated GFR () 62.2 Estimated GFR (Non- 53.6 BUN/Creatinine Ratio 18.7 Random Glucose 103 mg/dl Calcium Level 8.6 mg/dl Assessment & Plan Patient was seen and evaluated by hospitalist service. Vitals and labs are unremarkable and she is mentating appropriately. This was confirmed by her and [id number] who were present at bedside. Her last dose of tramadol was at 19:00 last night we will discontinue medication since this may have been the culprit for her brief altered mentation. Pain is currently well controlled she will continue on Tylenol in the meantime. Recommendations include keeping patient overnight for further observation and can be discharged home tomorrow when she is cleared by physical therapy and orthopedic surgery service.
--- NOTE | 2017-07-02 15:06 | PROGRESS NOTE ---
DATE: 07/02/2017 SUBJECTIVE: Sitting and resting comfortably in bed, but still has some moments of confusion. She is not quite sure at times that she is at home or at the hospital. She has had her medical consultation. At this point in time, it is likely some reaction to some perioperative sedatives and narcotics. Suggest we continue observation at this point in time in order to be safe. Keep her overnight and reevaluate tomorrow. There is nothing urgent from a medical perspective. There are no focal findings on exam that would warrant any type of imaging, etc. Appreciate medical consultation.
[2017-07-02] MEDS ORDERED: WARFARIN SOD 5 MG TAB PO SCH (16:00)
[2017-07-02] MEDS ORDERED: KETOROLAC TROMETHAMINE 15 MG/ML VIAL IV ONE (16:45)
[2017-07-02] MEDS: VALSARTAN 80 MG TAB PO SCH (21:30)
[2017-07-03] MEDS: ACETAMINOPHEN 325 MG TAB PO PRN (05:29)
[2017-07-03 06:16] LABS: INR 1.4 (0.9-1.1)
--- NOTE | 2017-07-03 06:39 | PROGRESS NOTE ---
DATE: 07/03/2017 Postop day #2 status post left total knee replacement. The patient is awake and alert. She is using her cell phone. She is oriented to person, place and time. She recognizes me and knows my name. She denies chest pain, shortness of breath, fever, chills, nausea, vomiting or headache. Vital signs are stable. She is afebrile. Wound dressing clean, dry and intact. Neurovascular check femoral sciatic nerve is normal. Calves nontender. INR is 1.4. When questioned in detail, still has period of time where she is not quite sure of past history. Of note, is that scopolamine patch was removed last evening. ASSESSMENT: Perioperative confusion is clearing. Likely based on scopolamine. At this point in time if she passes PT, OT, can discharge her today. Follow up in 2 weeks as noted, discharge on 2 mg of Coumadin a day as INR is 1.4.
[2017-07-03 07:40] VITALS: BP 146/82; PULSE 66; TEMP 36.7; O2SAT 95
[2017-07-03] MEDS ORDERED: WARFARIN SOD 4 MG TAB PO SCH (08:00)
[2017-07-03] MEDS ORDERED: ACETAMINOPHEN 500 MG TAB PO PRN (09:00)
--- NOTE | 2017-07-03 09:03 | Orthopedic Progress Note ---
Orthopedic Progress Note Date of Service Jul 03, 2017. Subjective Post OP Day: 2 Reports: feeling well, complaints (Increasing left knee pain), pain controlled w PO medications (pain only minmally allev with 650 mg PO Tylenol. 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 Objective calves soft nontender, N/V intact, capillary refill less than 2 sec., dressing C /D/I, incision C/D/I, A&O x3, toes mobile, CMS intact Date Time Temp Pulse Resp B/P (MAP) Pulse Ox O2 Delivery O2 Flow Rate FiO2 07/03/17 07:40 36.7 66 16 146/82 (103) 95 Room Air 07/02/17 22:55 36.8 57 15 145/74 (97) 92 Room Air 07/02/17 21:20 56 127/74 (91) 07/02/17 21:05 Room Air 07/02/17 15:24 36.6 60 18 137/70 (92) 95 Room Air 07/02/17 11:02 36.6 61 19 126/80 (95) 91 Room Air Laboratory Results 24 Hours: Test 07/03/17 05:40 Prothromb Time International Ratio 1.4 Prothrombin Time 14.7 SECONDS Assessment & Plan Assessment: Day 2 s/p Left total knee arthroplasty Plan: PT/OT today Dressing changed today, wound looks good. Confusion has resolved plan on discharge with home health today Pain control with PO Tylenol Total knee precautions coumadin today per nomogram. F/u at [facility] 2 wks post op Discharge Planning Discharge Planning: home with home health Pain Management: PO Tylenol DVT Prophylaxis: TEDs, SCDs, Coumadin
[2017-07-03] MEDS: METOPROLOL TARTRATE 50 MG TAB PO SCH (09:14)
[2017-07-03] MEDS: FERROUS GLUCONATE 324 MG TAB PO SCH ×2 (09:15→12:27)
[2017-07-03] MEDS: MULTIVITAMIN TAB PO SCH (09:15)
[2017-07-03] MEDS: PANTOprazole SOD 40 MG TAB PO SCH (09:15)
[2017-07-03] MEDS: DOCUSATE SODIUM 100 MG CAP PO SCH (09:15)
[2017-07-03] MEDS: HYDROCHLOROTHIAZIDE 25 MG TAB PO SCH (09:15)
[2017-07-03] MEDS: CARBIDOPA/LEVODOPA 25/100MG TAB PO SCH (09:15)
--- NOTE | 2017-07-03 10:34 | Medical Consult ---
Consultation Date of Consultation: Jul 03, 2017. Attending Physician: Antwon Gtz M.D. Reason for Consultation: Medical management History of Present Illness This is a 71 yo F w PMHx of hypertension, Parkinson disease, osteoarthritis, kidney stones, obesity, history of diverticulitis, hx Right breast lumpectomy, hysterectomy, laparoscopic cholecystectomy on 02/06/2014, and cataract surgery. She presents for left knee DJD and underwent total Left knee replacement. by Dr. Houston on 07/01. Pt is doing well this morning, and working with PT/OT. She has left knee pain but states its tolerable. No issues with numbness or tingling into distal extremity. Denies f/c/s. Pt is expecting dc today with home health services, then to transition to outpatient PT. Past Medical/Surgical History Medical Problems: (1) HLD (hyperlipidemia) (2) HTN (hypertension) (3) Left knee DJD (4) Parkinson disease Social History Smoking Status: Never Smoker Smokeless Tobacco Use: No Alcohol Use: occasionally Drug Use: none Marital Status: Housing Status: lives with family Allergies Coded Allergies: Codeine (Verified Allergy, Unknown, HALLUCINATIONS, 07/01/17) Doxycycline (Verified Allergy, Unknown, SEVERE VOMITING, 07/01/17) Losartan (Verified Allergy, Unknown, INCREASED BP, 07/01/17) Moxifloxacin (Verified Allergy, Unknown, HEART PALPITATIONS, 07/01/17) Oxycodone (Verified Allergy, Unknown, HALLUCINATIONS, 07/01/17) Pineapple (Verified Allergy, Unknown, BUMPS ON TONGUE, 07/01/17) Current Inpatient Medications Current Inpatient Medications Medications (Trade) Dose Ordered Sig/Mendoza Route Start Time Stop Time Status Last Admin Dose Admin Morphine Sulfate (MoRPHine SULFATE INJ) 2 mg Q1H PRN IV 07/01/17 08:45 07/15/17 08:44 Magnesium Hydroxide (Milk Of Magnesia Susp) 30 ml Q6H PRN PO 07/01/17 08:45 07/31/17 08:44 Bisacodyl (Dulcolax Supp) 10 mg DAILY PRN [place] 07/01/17 08:45 07/31/17 08:44 Docusate Sodium (coLACE CAP) 100 mg BID PO 07/01/17 09:00 07/31/17 08:59 07/03/17 09:15 100 MG Diphenhydramine HCl (Benadryl Inj) 25 mg Q8H PRN IV 07/01/17 08:45 07/31/17 08:44 Al Hydrox/Mg Hydrox/Simethicone (Maalox Max Susp) 15 ml Q4H PRN PO 07/01/17 08:45 07/31/17 08:44 Multivitamins (Multivitamin Tab) 1 tab QAM PO 07/01/17 09:00 07/31/17 08:59 07/03/17 09:15 1 TAB Ondansetron HCl (Zofran Inj) 4 mg Q6H PRN IV 07/01/17 08:45 07/31/17 08:44 Metoclopramide HCl (Reglan Inj) 10 mg Q6H PRN IV 07/01/17 08:45 07/31/17 08:44 Ferrous Gluconate (Ferrous Gluconate Tab) 324 mg TIDM PO 07/01/17 12:30 07/31/17 12:29 07/03/17 09:15 324 MG Pantoprazole Sodium (Protonix Tab) 40 mg QAM PO 07/01/17 09:00 07/06/17 08:59 07/03/17 09:15 40 MG Carbidopa/Levodopa (Sinemet 25/ 100MG Tab) 1 tab Q12 PO 07/01/17 21:00 07/31/17 20:59 07/03/17 09:15 1 TAB Cetirizine HCl (zyrTEC TAB) 10 mg DAILY PRN PO 07/01/17 08:45 07/31/17 08:44 Folic Acid (Folvite Tab) 1 mg QPM PO 07/01/17 21:00 07/31/17 20:59 07/02/17 21:30 1 MG Hydrochlorothiazide (Hydrochlorothiazide Tab) 25 mg QAM PO 07/01/17 09:00 07/31/17 08:59 07/03/17 09:15 25 MG Metoprolol Tartrate (Lopressor Tab) 50 mg BID PO 07/01/17 09:00 07/31/17 08:59 07/03/17 09:14 50 MG Valsartan (Diovan Tab) 160 mg QPM PO 07/01/17 21:00 07/31/17 20:59 07/02/17 21:30 160 MG Miscellaneous Information (Order Awaiting Action) 1 ea QS N/A 07/01/17 16:00 07/31/17 15:59 Morphine Sulfate (MoRPHine SULFATE INJ) 4 mg Q1H PRN IV 07/01/17 09:45 07/15/17 09:44 Warfarin Sodium (Coumadin Tab) 4 mg TODAY@0800 PO 07/03/17 08:00 07/03/17 12:00 07/03/17 09:16 4 MG Acetaminophen (Tylenol Tab) 1,000 mg Q8H PRN PO 07/03/17 09:00 08/02/17 08:59 07/03/17 09:14 1,000 MG Review of Systems Constitutional: No fever, sweats or chills Eyes: No diplopia, no worsening or blurred vision ENT: normal hearing, no trouble swallowing Respiratory: No cough, sputum, dyspnea at rest or on exertion Cardiovascular: No chest pain, tightness or palpitations Abdomen: No pain, nausea, vomiting, diarrhea or constipation Musculoskeletal: See HPI Neurologic: No weakness, numbness/tingling, or balance problems Psychiatric: No anxiety or depression Skin: No rash or itch Physical Exam Date Time Temp Pulse Resp B/P (MAP) Pulse Ox O2 Delivery O2 Flow Rate FiO2 07/03/17 08:30 Room Air 07/03/17 07:40 36.7 66 16 146/82 (103) 95 Room Air 07/02/17 22:55 36.8 57 15 145/74 (97) 92 Room Air 07/02/17 21:20 56 127/74 (91) 07/02/17 21:05 Room Air 07/02/17 15:24 36.6 60 18 137/70 (92) 95 Room Air 07/02/17 11:02 36.6 61 19 126/80 (95) 91 Room Air General: awake, alert, no apparent distress Head: Normocephalic, atraumatic ENT: PERRL, EOMI, no pharyngeal exudate, mucous membranes moist Chest: Clear to auscultation, on room air, no adventitious breath sounds Cardiac: Regular rate and rhythm, no murmur, no JVD, normal peripheral pulses, good capillary refill Abdominal: NABS x 4 quadrants, soft, nontender to palpation, no rebound, guarding or tenderness Extremities: Normal inspection, L knee wrapped in bandage, no peripheral edema, no decreased sensation to light touch on L leg. Otherwise no peripheral edema or erythema, calfs nontender to palpation Psych: Normal mood and affect Neuro: AAO x 3, strength intact bilaterally and related 5/5, no motor deficits, speech is clear, no peripheral sensory deficits Laboratory Results Last 24 Hours Test 07/03/17 05:40 Prothrombin Time 14.7 SECONDS Prothromb Time International Ratio 1.4 Assessment & Plan 71 yo F with: S/p L TKA - Pain management, bowel regimen, dvt ppx per primary team - Resume asa therapy per primary team - WBC is 11 K but likely reactive from surgery HTN - Continue metoprolol tartrate 50 mg BID, HCTZ 25 mg QAM, Valsartan 160 mg Qpm A fib - Coumadin 4 mg ordered to resume today. Parkinsons disease - Continue sinemet DVT ppx: coumadin Dispo: Discharge likely today. Attending progress note pt seen and examed, d/w PA about jacome points of dignosis and care plan, agreed current management, for details please referral to PA's note S: Doing okay, right knee pain fairly controlled, no other complaint ROS details see PA's note O: VS reviewed, stable, NAD Lungs: decreased breathing sound, no respiratory distress, no accessory muscle use Cardiovascular: regular rate, rhythm, no edema, normal peripheral pulses Abdomen / GI: normal bowel sounds, non tender, soft Extremities: Right knee in dress, no calf tenderness, no pedal edema Neurologic/Psychiatric: alert, normal mood/affect, oriented x 3, CNII-XII intact labs, images reviewed , see PA's note A/P: 71 yo F with: S/p L TKA, Pain management, bowel regimen, dvt ppx per primary team HTN A fib Parkinsons disease The above conditions stable continue current medication
[2017-07-03 10:49] VITALS: BP 146/82; PULSE 66; TEMP 36.7; O2SAT 95
--- NOTE | 2017-07-03 10:49 | Clinical Documentation Query ---
ACE Williamson : CLINICAL DOCUMENTATION QUERY Patient is a 71 year old female who underwent left TKA on 07/01. Postoperatively patient with noted moments of confusion, deemed "is likely some reaction to some perioperative sedatives and narcotics" and subsequently noted to be "Likely based on scopolamine". As appropriate, consider clarification as suggested below as this directly impacts accurate DRG assignment. Thank you. In your clinical opinion is this patient being managed for: ( x ) Toxic encephalopathy secondary to medications, resolved. ( ) Not Agree ( ) Other explanation of clinical findings (Please Explain) ( ) Unable to determine (Please Define) ( ) Need to Discuss The medical record reflects the following clinical findings, treatment, and risk factors. Clinical Indicators: As above Treatment: Holding of medications, monitoring Risk Factors: Age, surgery, INSURANCE INSTRUCTOR acting medications Please clarify and document your clinical opinion in the progress notes and discharge summary. Terms such as "probable", "suspected", "likely", "questionable", "possible", or "still to be ruled out" are acceptable. IF IN AGREEMENT, YOU MUST DOCUMENT ABOVE DIAGNOSTIC STATEMENT IN DAILY PROGRESS NOTES AND DISCHARGE SUMMARY. This document is not part of the patient's record. Thank You, Santo Fitch, RN [phone]
== END 2017-07-03 14:15 | disposition home health service (06) | DRG 983 ==
LOC: C.ACU 05:02 → C.3E 06:15 → ENRESERV 09:19 → C.3E 07-02 22:34
PROVIDERS: ADMIT Physical Medicine & Rehabilitation Sports Medicine; ATTEND Physical Medicine & Rehabilitation Sports Medicine
PROC: 0SRD0J9 Replacement of Left Knee Joint with Synthetic Substitute, Cemented, Open Approach (ICD-10-PCS; principal; 2017-07-01 07:00)
DX: I10 Essential (primary) hypertension (principal); G20 Parkinson's disease; Z87.442 Personal history of urinary calculi; E66.9 Obesity, unspecified; Z90.710 Acquired absence of both cervix and uterus; Z88.1 Allergy status to other antibiotic agents; Z88.5 Allergy status to narcotic agent; Z79.82 Long term (current) use of aspirin; M17.11 Unilateral primary osteoarthritis, right knee; I48.91 Unspecified atrial fibrillation

== ENCOUNTER → 2017-07-12 | Outpatient (CLI) | payer OTHER ==
[~2017-07-12] MED LIST changes: -ASPI325T45 PO; +METO50TA16 PO; +WARF2TAB PO
== END | disposition home or self-care (01) ==
LOC: C.RDSM 10:40
PROVIDERS: ATTEND Physical Medicine & Rehabilitation Sports Medicine
DX: Z96.652 Presence of left artificial knee joint (principal)